=== PATIENT | male | born 1955 | race Native Hawaiian/Other Pacific Islander ===

== ENCOUNTER 2018-04-16 08:29 | Outpatient (CLI) | payer OTHER ==
[~2018-04-16] VITALS: Ht 30.5 cm; Wt 0.5 kg
== END 2018-04-16 21:19 | disposition home or self-care (01) ==
LOC: NM 08:29
DX: I25.10 Atherosclerotic heart disease of native coronary artery without angina pectoris (principal)
CPT/HCPCS: 93306; A9500; J2785